=== PATIENT | male | born 1965 | race Caucasian/White ===

== ENCOUNTER 2016-08-19 22:35 | Emergency (ER) | payer SELFPAY ==
[~2016-08-19] VITALS: Ht 2.5 cm; Wt 87.5 kg
[2016-08-19 22:41] VITALS: Ht 2.5 cm; Wt 87.5 kg
== END 2016-08-20 00:06 | disposition left against medical advice (07) ==
LOC: FTE 22:35
DX: Z53.21 Procedure and treatment not carried out due to patient leaving prior to being seen by health care provider (principal)